=== PATIENT | male | born 1955 | race American Indian/Alaskan Native ===

== ENCOUNTER 2017-06-11 07:19 | Emergency (ER) | payer OTHER ==
[2017-06-11 07:40] VITALS: BP 148/88
[2017-06-11 07:55] LABS: Basophils # (Auto) 0.1 K/mm3 (0.0-0.1); Eosinophils # (Auto) 0.2 K/mm3 (0.0-0.4); Eosinophils % (Auto) 3.7 % (0.0-4.3); Hematocrit 25.9 % (35.5-45.6); Lymphocytes # (Auto) 1.1 K/mm3 (1.2-5.4); Lymphocytes % (Auto) 16.8 % (13.4-35.0); Mean Corpuscular HGB Conc 31 % (32-34); Mean Corpuscular Hemoglobin 28 pg (28-32); Mean Corpuscular Volume 90 fl (84-94); Monocytes # (Auto) 0.8 K/mm3 (0.0-0.8); Monocytes % (Auto) 12.5 % (0.0-7.3); Platelet Count 261 K/mm3 (140-440); Red Blood Count 2.89 M/mm3 (3.65-5.03); Red Cell Distribution Width 13.8 % (13.2-15.2)
[2017-06-11 08:08] LABS: Albumin 3.7 g/dL (3.9-5)
--- NOTE | 2017-06-11 09:18 | XRay Report ---
CHEST 2 VIEWS INDICATION: Bleeding at dialysis site. COMPARISON: 05/30/2017 FINDINGS: Frontal and lateral chest radiographs demonstrate new right sided dual lumen catheter tip in the right atrium, overlying the spine and approximately 4 cm below the cavoatrial junction. Improved bibasilar opacites/effusions, though small left pleural effusion/lateral costophrenic angle blunting persists. No overt CHF. Stable cardiomediastinal silhouette and somewhat prominent lung markings centrally. Approximately 2.7 cm left upper lung pneumonia overlying the left posterior sixth rib on the frontal view appears slightly heterogeneous and smaller, previously 3.6 cm. Slight fluid or thickening along the fissures. Intact bones. CONCLUSION: 1. Improving bibasilar opacities/effusions, right more the left, as described. 2. Left upper lobe pneumonia again noted, though appears smaller, as described. Follow up to complete resolution suggested after adequate conservative treatment. 3. New right-sided central catheter. Thank you for the opportunity to participate in this patient's care.
--- NOTE | 2017-06-11 10:38 | Emergency Department Report ---
ED General Adult HPI - General Chief complaint: Medical Clearance Stated complaint: BLEEDING SHUNT Time Seen by Provider: 06/11/17 08:06 Source: patient Mode of arrival: Ambulatory Limitations: No Limitations - History of Present Illness Initial comments: Patient is a 61-year-old male past ocular history of end-stage renal disease who gets dialysis Wednesday and Wednesday who presents with bleeding dialysis catheter. Patient states that he got his dialysis catheter placed one week ago and then after dialysis she noticed that the catheter was bleeding. Patient denies having any pain he states that the bleeding has stopped however he is concerned that his dressing is covered in blood. Nothing makes patient's symptoms better or worse. Patient denies having any fever or chills any trauma to the area any chest pain or shortness of breath. - Related Data Previous Rx's Medication Instructions Recorded Last Taken Type Acetaminophen [Acetaminophen TAB] 325 mg PO Q4H PRN #30 tablet 06/05/17 Unknown Rx Aspirin [Aspirin TAB] 325 mg PO QDAY #30 06/05/17 1 Day Ago Rx ~05/30/17 Calcitriol [Rocaltrol] 0.5 mcg PO 3XW #1 mo 06/05/17 Unknown Rx Calcium Acetate [Phoslo] 1,334 mg PO TID #1 mo 06/05/17 Unknown Rx Carvedilol [Coreg] 12.5 mg PO BID #60 tablet 06/05/17 Unknown Rx Clopidogrel [Plavix] 75 mg PO QDAY #30 06/05/17 1 Day Ago Rx ~05/30/17 Detemir (Nf) [Levemir (Nf)] 5 units SUB-Q QHS #30 units 06/05/17 Unknown Rx Epoetin Sandip 10,000 Unit [Procrit] 10,000 unit IV BALAJI PRN vial 06/05/17 Unknown Rx Furosemide [Lasix TAB] 40 mg PO DAILY #30 tablet 06/05/17 Unknown Rx amLODIPine [Norvasc] 5 mg PO BID #60 tablet 06/05/17 Unknown Rx Allergies Allergy/AdvReac Type Severity Reaction Status Date / Time No Known Allergies Allergy Verified 03/04/14 00:27 ED Review of Systems ROS: Stated complaint: BLEEDING SHUNT Other details as noted in HPI Constitutional: denies: chills, fever Eyes: denies: eye pain, eye discharge, vision change ENT: denies: ear pain, throat pain Respiratory: denies: cough, shortness of breath, wheezing Cardiovascular: denies: chest pain, palpitations Endocrine: no symptoms reported Gastrointestinal: denies: abdominal pain, nausea, diarrhea Genitourinary: denies: urgency, dysuria Musculoskeletal: denies: back pain, joint swelling, arthralgia Skin: denies: rash, lesions Neurological: denies: headache, weakness, paresthesias Psychiatric: denies: anxiety, depression Hematological/Lymphatic: denies: easy bleeding, easy bruising ED Past Medical Hx - Past Medical History Hx Hypertension: Yes Hx Congestive Heart Failure: No Hx Diabetes: Yes Hx Arthritis: Yes Hx Asthma: Yes (childhood asthma) Hx COPD: No Additional medical history: Kidney Disease - Surgical History Additional Surgical History: dialysis shunt to lt arm - Social History Smoking Status: Never Smoker Substance Use Type: None - Medications Home Medications: Home Medications Medication Instructions Recorded Confirmed Last Taken Type Acetaminophen [Acetaminophen TAB] 325 mg PO Q4H PRN #30 tablet 06/05/17 Unknown Rx Aspirin [Aspirin TAB] 325 mg PO QDAY #30 06/05/17 05/31/17 1 Day Ago Rx ~05/30/17 Calcitriol [Rocaltrol] 0.5 mcg PO 3XW #1 mo 06/05/17 Unknown Rx Calcium Acetate [Phoslo] 1,334 mg PO TID #1 mo 06/05/17 Unknown Rx Carvedilol [Coreg] 12.5 mg PO BID #60 tablet 06/05/17 Unknown Rx Clopidogrel [Plavix] 75 mg PO QDAY #30 06/05/17 05/31/17 1 Day Ago Rx ~05/30/17 Detemir (Nf) [Levemir (Nf)] 5 units SUB-Q QHS #30 units 06/05/17 Unknown Rx Epoetin Sandip 10,000 Unit [Procrit] 10,000 unit IV BALAJI PRN vial 06/05/17 Unknown Rx Furosemide [Lasix TAB] 40 mg PO DAILY #30 tablet 06/05/17 Unknown Rx amLODIPine [Norvasc] 5 mg PO BID #60 tablet 06/05/17 Unknown Rx ED Physical Exam - General Limitations: No Limitations General appearance: alert, in no apparent distress - Head Head exam: Present: atraumatic, normocephalic - Eye Eye exam: Present: normal appearance - ENT ENT exam: Present: mucous membranes moist - Neck Neck exam: Present: normal inspection - Respiratory Respiratory exam: Present: normal lung sounds bilaterally. Absent: respiratory distress - Cardiovascular Cardiovascular Exam: Present: regular rate, normal rhythm, other (bleeding right hemodialysis catheter). Absent: systolic murmur, diastolic murmur, rubs, gallop - GI/Abdominal GI/Abdominal exam: Present: soft, normal bowel sounds - Rectal Rectal exam: Present: deferred - Extremities Exam Extremities exam: Present: normal inspection - Back Exam Back exam: Present: normal inspection - Neurological Exam Neurological exam: Present: alert, oriented X3 - Psychiatric Psychiatric exam: Present: normal affect, normal mood - Skin Skin exam: Present: warm, dry, intact, normal color. Absent: rash ED Course Vital Signs 06/11/17 07:35 Temperature 97.6 F Pulse Rate 87 Respiratory 18 Rate Blood Pressure 148/88 O2 Sat by Pulse 96 Oximetry ED Medical Decision Making - Lab Data Result diagrams: 06/11/17 07:44 06/11/17 07:44 Lab Results 06/11/17 06/11/17 Range/Units 07:44 07:44 WBC 6.7 (4.5-11.0) K/mm3 RBC 2.89 L (3.65-5.03) M/mm3 Hgb 8.0 L (11.8-15.2) gm/dl Hct 25.9 L (35.5-45.6) % MCV 90 (84-94) fl MCH 28 (28-32) pg MCHC 31 L (32-34) % RDW 13.8 (13.2-15.2) % Plt Count 261 (140-440) K/mm3 Lymph % (Auto) 16.8 (13.4-35.0) % [place] % (Auto) 12.5 H (0.0-7.3) % Eos % (Auto) 3.7 (0.0-4.3) % Baso % (Auto) 1.0 (0.0-1.8) % Lymph # 1.1 L (1.2-5.4) K/mm3 [place] # 0.8 (0.0-0.8) K/mm3 Eos # 0.2 (0.0-0.4) K/mm3 Baso # 0.1 (0.0-0.1) K/mm3 Seg Neutrophils % 66.0 (40.0-70.0) % Seg Neutrophils # 4.4 (1.8-7.7) K/mm3 Sodium 140 (137-145) mmol/L Potassium 4.2 (3.6-5.0) mmol/L Chloride 95.4 L (98-107) mmol/L Carbon Dioxide 31 H (22-30) mmol/L Anion Gap 18 mmol/L BUN 28 H (9-20) mg/dL Creatinine 5.3 H (0.8-1.5) mg/dL Estimated GFR 13 ml/min BUN/Creatinine Ratio 5 % Glucose 114 H (75-100) mg/dL Calcium 9.0 (8.4-10.2) mg/dL Total Bilirubin 0.30 (0.1-1.2) mg/dL AST 22 (5-40) units/L ALT 8 (7-56) units/L Alkaline Phosphatase 130 H (35-129) units/L Total Protein 6.6 (6.3-8.2) g/dL Albumin 3.7 L (3.9-5) g/dL Albumin/Globulin Ratio 1.3 % - Radiology Data Radiology results: report reviewed, image reviewed Chest x-ray: Shows resolving left lower lobe pneumonia and right dialysis catheter in place - Medical Decision Making Cdx: Dialysis catheter irritation ddx: Hyperkalemia, anemia I will get a CBC BMP, chest x-ray and I will place a new dressing on patient's right dialysis port. Patient's chest x-ray shows improving pneumonia other lab work just shows changes of chronic dialysis I'll send patient home patient agrees with plan. Additional verbal discharge instructions were given. Critical care attestation.: If time is entered above; I have spent that time in minutes in the direct care of this critically ill patient, excluding procedure time. ED Disposition Clinical Impression: Bleeding, ESRD (end stage renal disease), Hypertensive chronic kidney disease with stage 5 chronic kidney disease or end stage renal disease Complications, dialysis, catheter, mechanical Qualifiers: Encounter type: initial encounter Qualified Code(s): T82.49XA - Other complication of vascular dialysis catheter, initial encounter Disposition: DC- TO HOME OR SELFCARE Is pt being admited?: No Does the pt Need Aspirin: No Condition: Stable Referrals: JONI NGUYEN MD [Staff Physician] - 3-5 Days
== END 2017-06-11 10:38 | disposition home or self-care (01) ==
LOC: ED 07:19
DX: T82.838A Hemorrhage due to vascular prosthetic devices, implants and grafts, initial encounter (principal); E11.22 Type 2 diabetes mellitus with diabetic chronic kidney disease; I12.0 Hypertensive chronic kidney disease with stage 5 chronic kidney disease or end stage renal disease; N18.6 End stage renal disease; Z99.2 Dependence on renal dialysis; M19.90 Unspecified osteoarthritis, unspecified site; J45.909 Unspecified asthma, uncomplicated; Y84.1 Kidney dialysis as the cause of abnormal reaction of the patient, or of later complication, without mention of misadventure at the time of the procedure; Y92.89 Other specified places as the place of occurrence of the external cause
CPT/HCPCS: 36415; 71046; 80053; 85025; 99284

== ENCOUNTER 2020-03-02 09:59 | Emergency (ER) | payer OTHER ==
[2020-03-02 10:09] VITALS: BP 180/93
[2020-03-02 11:33] LABS: Bacteria,Urine 1+ /HPF (Negative); Bilirubin,Urine NEG (Negative); Blood,Urine NEG (Negative); Color,Urine Yellow (Yellow); Mucus,Urine FEW /HPF; Urobilinogen,Urine < 2.0 mg/dL (<2.0)
[2020-03-02 13:31] LABS: Basophils # (Auto) 0.1 K/mm3 (0.0-0.1); Basophils % (Auto) 0.8 % (0.0-1.8); Eosinophils # (Auto) 0.3 K/mm3 (0.0-0.4); Eosinophils % (Auto) 3.2 % (0.0-4.3); Hematocrit 33.1 % (35.5-45.6); Hemoglobin 11.4 gm/dl (11.8-15.2); Lymphocytes # (Auto) 1.5 K/mm3 (1.2-5.4); Lymphocytes % (Auto) 15.4 % (13.4-35.0); Mean Corpuscular HGB Conc 35 % (32-34); Mean Corpuscular Volume 93 fl (84-94); Monocytes # (Auto) 0.8 K/mm3 (0.0-0.8); Monocytes % (Auto) 7.9 % (0.0-7.3); Platelet Count 265 K/mm3 (140-440); Red Blood Count 3.56 M/mm3 (3.65-5.03); Red Cell Distribution Width 15.8 % (13.2-15.2)
[2020-03-02 13:44] LABS: Albumin 4.5 g/dL (3.9-5); Calcium 10.7 mg/dL (8.4-10.2)
--- NOTE | 2020-03-02 13:49 | Emergency Department Report ---
ED General Adult HPI - General Chief complaint: Urogenital-Male Stated complaint: INFECTION PUI?: No Time Seen by Provider: 03/02/20 11:27 Source: patient Mode of arrival: Ambulatory Limitations: No Limitations - History of Present Illness Initial comments: 64-year-old -[place] male presents to the emergency room complaining of urinary frequency. Patient states he is urinating every 5 minutes. Patient states he is a diabetic and is controlled by diet and is often checked at his hemodialysis center. Patient denies any dysuria no penile discharge no fever no chills no abdominal pain. States he cannot sleep secondary to getting up to pee so much. Onset/Timin -: days(s) Associated Symptoms: other (Urinary frequency). denies: chest pain, cough, diaphoresis, fever/chills, loss of appetite, malaise, nausea/vomiting, rash, shortness of breath, weakness Treatments Prior to Arrival: none - Related Data Previous Rx's Medication Instructions Recorded Last Taken Type Acetaminophen [Acetaminophen TAB] 325 mg PO Q4H PRN #30 tablet 06/05/17 Unknown Rx Aspirin 325 mg PO QDAY #30 06/05/17 1 Day Ago Rx ~05/30/17 Calcium Acetate [Phoslo] 1,334 mg PO TID #1 mo 06/05/17 Unknown Rx Clopidogrel [Plavix] 75 mg PO QDAY #30 06/05/17 1 Day Ago Rx ~05/30/17 Detemir (Nf) [Levemir (Nf)] 5 units SUB-Q QHS #30 units 06/05/17 Unknown Rx Epoetin Sandip 10,000 Unit [Procrit] 10,000 unit IV BALAJI PRN vial 06/05/17 Unknown Rx Furosemide [Lasix TAB] 40 mg PO DAILY #30 tablet 06/05/17 Unknown Rx amLODIPine 5 mg PO BID #60 tablet 06/05/17 Unknown Rx calcitrioL [Rocaltrol] 0.5 mcg PO 3XW #1 mo 06/05/17 Unknown Rx carvediloL [Coreg] 12.5 mg PO BID #60 tablet 06/05/17 Unknown Rx Sulfamethoxazole/Trimethoprim 1 each PO BID 7 Days #14 tablet 03/02/20 Unknown Rx [Bactrim DS TAB] Allergies Allergy/AdvReac Type Severity Reaction Status Date / Time No Known Allergies Allergy Verified 03/04/14 00:27 ED Review of Systems ROS: Stated complaint: INFECTION Other details as noted in HPI Comment: All other systems reviewed and negative ED Past Medical Hx - Past Medical History Hx Hypertension: Yes Hx Congestive Heart Failure: No Hx Diabetes: Yes Hx Arthritis: Yes Hx Asthma: Yes (childhood asthma) Hx COPD: No Additional medical history: Kidney Disease - Surgical History Additional Surgical History: dialysis shunt to lt arm - Social History Smoking Status: Never Smoker - Medications Home Medications: Home Medications Medication Instructions Recorded Confirmed Last Taken Type Acetaminophen [Acetaminophen TAB] 325 mg PO Q4H PRN #30 tablet 06/05/17 Unknown Rx Aspirin 325 mg PO QDAY #30 06/05/17 05/31/17 1 Day Ago Rx ~05/30/17 Calcium Acetate [Phoslo] 1,334 mg PO TID #1 mo 06/05/17 Unknown Rx Clopidogrel [Plavix] 75 mg PO QDAY #30 06/05/17 05/31/17 1 Day Ago Rx ~05/30/17 Detemir (Nf) [Levemir (Nf)] 5 units SUB-Q QHS #30 units 06/05/17 Unknown Rx Epoetin Sandip 10,000 Unit [Procrit] 10,000 unit IV BALAJI PRN vial 06/05/17 Unknown Rx Furosemide [Lasix TAB] 40 mg PO DAILY #30 tablet 06/05/17 Unknown Rx amLODIPine 5 mg PO BID #60 tablet 06/05/17 Unknown Rx calcitrioL [Rocaltrol] 0.5 mcg PO 3XW #1 mo 06/05/17 Unknown Rx carvediloL [Coreg] 12.5 mg PO BID #60 tablet 06/05/17 Unknown Rx Sulfamethoxazole/Trimethoprim 1 each PO BID 7 Days #14 tablet 03/02/20 Unknown Rx [Bactrim DS TAB] ED Physical Exam - General Limitations: No Limitations General appearance: alert, in no apparent distress - Head Head exam: Present: atraumatic, normocephalic - Eye Eye exam: Present: normal appearance - ENT ENT exam: Present: mucous membranes moist - Neck Neck exam: Present: normal inspection - Respiratory Respiratory exam: Absent: chest wall tenderness - Cardiovascular Cardiovascular Exam: Present: regular rate, normal rhythm. Absent: systolic murmur, diastolic murmur, rubs, gallop - GI/Abdominal GI/Abdominal exam: Present: soft - Neurological Exam Neurological exam: Present: alert, oriented X3, normal gait - Psychiatric Psychiatric exam: Present: normal affect, normal mood. Absent: agitated, suicidal ideation - Skin Skin exam: Present: warm, dry, intact, normal color. Absent: rash ED Course Vital Signs 03/02/20 10:02 Temperature 98.0 F Pulse Rate 97 H Respiratory 19 Rate Blood Pressure 180/93 O2 Sat by Pulse 98 Oximetry ED Medical Decision Making - Medical Decision Making 64-year-old -[place] male presents to the emergency room complaining of urinary frequency. Patient states he is urinating every 5 minutes. Patient states he is a diabetic and is controlled by diet and is often checked at his hemodialysis center. Patient denies any dysuria no penile discharge no fever no chills no abdominal pain. States he cannot sleep secondary to getting up to pee so much. Urinalysis shows 1+ bacteria mucus. Labs are stable for a end-stage renal with dialysis patient. Patient is afebrile not tachycardic. Discussed case with he recommends patient to be placed on Bactrim double strength for 7 days and to follow-up with his primary care provider. Critical care attestation.: If time is entered above; I have spent that time in minutes in the direct care of this critically ill patient, excluding procedure time. ED Disposition Clinical Impression: UTI (urinary tract infection) Disposition: DC-01 TO HOME OR SELFCARE Is pt being admited?: No Does the pt Need Aspirin: No Condition: Stable Instructions: Urinary Tract Infection, Adult, [id number] Additional Instructions: Complete antibiotics as prescribed. Increase your water intake and follow-up with your primary care provider. Prescriptions: Sulfamethoxazole/Trimethoprim [Bactrim DS TAB] 1 each PO BID 7 Days #14 tablet Referrals: MAGDALENA STEIN MD [Primary Care Provider] - 3-5 Days JOSEFA MEHTA MD [Staff Physician] - 3-5 Days
== END 2020-03-02 14:01 | disposition home or self-care (01) ==
LOC: ED 09:59
DX: N39.0 Urinary tract infection, site not specified (principal); I10 Essential (primary) hypertension; E11.9 Type 2 diabetes mellitus without complications; M19.91 Primary osteoarthritis, unspecified site; J45.909 Unspecified asthma, uncomplicated; Z98.890 Other specified postprocedural states; Z79.899 Other long term (current) drug therapy
CPT/HCPCS: 36415; 80053; 81001; 82805; 82962; 85025

== ENCOUNTER 2020-06-17 13:32 | Emergency (ER) | payer OTHER ==
[2020-06-17 13:45] VITALS: BP 179/93
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
[2020-06-17] MEDS ORDERED: ONDANSETRON 4 MG/2 ML INJ IV ONE (14:19)
[2020-06-17] MEDS ORDERED: HYDROmorphone 1 MG/1 ML INJ IV ONE ×2 (14:19→15:39)
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
[2020-06-17] MEDS ORDERED: oxyCODONE /ACETAMINOPHEN 5-325MG TAB PO ONE (15:39)
== END 2020-06-17 18:10 | disposition home or self-care (01) ==
LOC: ED 13:32
DX: S82.141A Displaced bicondylar fracture of right tibia, initial encounter for closed fracture (principal); S60.222A Contusion of left hand, initial encounter; I10 Essential (primary) hypertension; E11.9 Type 2 diabetes mellitus without complications; M19.91 Primary osteoarthritis, unspecified site; J45.909 Unspecified asthma, uncomplicated; Z98.890 Other specified postprocedural states; Z79.899 Other long term (current) drug therapy; V49.49XA Driver injured in collision with other motor vehicles in traffic accident, initial encounter; Y93.89 Activity, other specified; Y92.410 Unspecified street and highway as the place of occurrence of the external cause; Y99.8 Other external cause status
CPT/HCPCS: 29505; 73060; 73090; 73564; 73590; 96374; 96375; 96376; 99284; J1170; J2405

== ENCOUNTER 2020-08-23 09:10 | Outpatient (CLI) | payer OTHER ==
--- NOTE | 2020-08-23 10:22 | XRay Report ---
RIGHT TIBIA-FIBULA 4 VIEW(S) INDICATION / CLINICAL INFORMATION: FRACTURE OF RIGHT TIBIA COMPARISON: Right tib-fib 06/17/2020 and fluoroscopic imaging 06/27/2020 FINDINGS: BONES / JOINT(S): Medial tibial plateau fracture fixation with healing appearance of the fracture. Th ere is possibly up to 4 mm of depression, posteriorly, however this is difficult to delineate on this examination. No new fracture is visualized. Small suprapatellar effusion is present. Moderate tricom partmental degenerative changes are present. SOFT TISSUES: Mild edema in the medial knee. ADDITIONAL FINDINGS: None. Signer Name: Gerard Devi MD Signed: 08/23/2020 10:18 AM Workstation Name: [id number]
== END 2020-08-23 09:11 | disposition home or self-care (01) ==
LOC: XRAY 09:10
PROVIDERS: ATTEND Orthopaedic Surgery
DX: S82.141D Displaced bicondylar fracture of right tibia, subsequent encounter for closed fracture with routine healing (principal); M19.171 Post-traumatic osteoarthritis, right ankle and foot; M25.471 Effusion, right ankle; M79.89 Other specified soft tissue disorders; X58.XXXD Exposure to other specified factors, subsequent encounter

== ENCOUNTER 2020-10-11 08:55 | Outpatient (CLI) | payer OTHER ==
--- NOTE | 2020-10-11 09:57 | XRay Report ---
RIGHT TIBIA AND FIBULA 2 VIEWS INDICATION: DISPLACED BICONDYLAR FRACTURE OF RIGHT TIBIA S82.141. COMPARISON: 08/23/2020 IMPRESSION: The internally fixated medial tibial plateau fracture is unchanged in position and align ment since 08/23/2020 exam. Further healing of the fracture is demonstrated although fracture lines re main vaguely evident. The remainder of the tibia and fibula are intact. The soft tissues are unremark able. No significant change is appreciated since the previous exam. Signer Name: Lester Ghotra Jr, MD Signed: 10/11/2020 9:52 AM Workstation Name: [id number]
== END 2020-10-11 08:56 | disposition home or self-care (01) ==
LOC: XRAY 08:55
PROVIDERS: ATTEND Orthopaedic Surgery
DX: S82.141D Displaced bicondylar fracture of right tibia, subsequent encounter for closed fracture with routine healing (principal); X58.XXXD Exposure to other specified factors, subsequent encounter